=== PATIENT | female | born 1950 | race Caucasian/White ===

== ENCOUNTER → 2018-05-14 14:49 | Outpatient (CLI) | payer MEDICARE, SELFPAY ==
--- NOTE | 2018-05-14 15:04 | DI.RAD.S_ITS ---
PROCEDURE: XR WRIST LT MIN 3V INDICATIONS: Left wrist pain TECHNIQUE: 4 views of the wrist were acquired. COMPARISON: None. FINDINGS: Bones: No fractures or dislocations. No suspicious bony lesions. There is a moderately severe degree of degenerative osteoarthritic change at the base of the first metacarpal. Scaphoid view: No prominence of the scaphoid is found. Soft tissues: No suspicious soft tissue calcifications. 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 No trauma found. Dictated by: Rayshawn Walsh M.D. on 05/14/2018 at 15:17 Approved by: Rayshawn Walsh M.D. on 05/14/2018 at 15:18
== END ==
PROVIDERS: Visit Provider Physician Assistant
DX: M25.532 Pain in left wrist (principal); M19.042 Primary osteoarthritis, left hand
CPT/HCPCS: 73110